=== PATIENT | female | born 1980 | race Caucasian/White ===

== ENCOUNTER 2016-09-07 09:51 | Emergency (ER) | payer SELFPAY ==
[~2016-09-07] VITALS: Ht 167.6 cm; Wt 90.7 kg
[~2016-09-07 09:51] MED LIST: AMOX1TAB61 PO; BENZ100C PO; PRED50TA PO; PROAIR RESPICL90 MCG IH; PROM5SYR2 PO
[2016-09-07 10:23] LABS: BILIRUBIN,URINE NEGATIVE (NEG); GLUCOSE,URINE NEGATIVE (NEG); NITRITE,URINE NEGATIVE (NEG); PROTEIN,URINE NEGATIVE (NEG-TRACE); UROBILINOGEN,URINE 0.2 mg/dL (0.2 mg/dL)
--- NOTE | 2016-09-07 10:27 | PHYS DOC ---
Past Medical History Past Medical History: No Pertinent History Past Surgical History: Tubal ligation Additional Past Surgical Histo: ovarian cyst removal Additional Information: 06/08 ppd Alcohol Use: None Drug Use: None Adult General Chief Complaint Chief Complaint: VAGINAL BLEEDING HPI HPI Patient is a 36 year old female presents to the emergency department stating that she started her menstrual cycle on Wednesday. Yesterday she started having what she describes as base ball size blood clots time 3. She states she has also has lower abdominal cramping, and back pain. She states she has had a tubal ligation in the past. She states she has not taken anything for the pain. She states she has gone thru 4 pads in a 24 hour period. Review of Systems Review of Systems Constitutional: Denies fever or chills [] Eyes: Denies change in visual acuity, redness, or eye pain [] HENT: Denies nasal congestion or sore throat [] Respiratory: Denies cough or shortness of breath [] Cardiovascular: No additional information not addressed in [facility] [] GI: lower pelvic abdominal cramping, denies nausea, vomiting, bloody stools or diarrhea [] : Denies dysuria or hematuria. C/o vaginal bleeding Musculoskeletal: Denies back pain or joint pain [] Integument: Denies rash or skin lesions [] Neurologic: Denies headache, focal weakness or sensory changes [] Current Medications Current Medications Current Medications Medications (Trade) Dose Ordered Sig/Tierney Start Time Stop Time Status Last Admin Dose Admin Ketorolac Tromethamine (Toradol) 30 mg 1X ONCE 09/07/16 11:00 09/07/16 11:01 DC 09/07/16 11:08 30 MG Allergies Allergies Allergies Coded Allergies Type Severity Reaction Last Updated Verified No Known Drug Allergies 06/13/14 No Physical Exam Physical Exam Constitutional: Well developed, well nourished, no acute distress, non-toxic appearance. [] HENT: Normocephalic, atraumatic, bilateral external ears normal, oropharynx moist, no oral exudates, nose normal. [] Eyes: PERRLA, EOMI, conjunctiva normal, no discharge. [] Neck: Normal range of motion, no tenderness, supple, no stridor. [] Cardiovascular:Heart rate regular rhythm, no murmur [] Lungs & Thorax: Bilateral breath sounds clear to auscultation [] Abdomen: Bowel sounds normal, soft, lower pelvic tenderness, no masses, no pulsatile masses. [] Skin: Warm, dry, no erythema, no rash. [] Back: No tenderness Extremities: No tenderness, no cyanosis, no clubbing, ROM intact, no edema. [] Neurologic: Alert and oriented X 3, normal motor function, normal sensory function, no focal deficits noted. [] Psychologic: Affect normal, judgement normal, mood normal. [] Vaginal exam: speculum exam with blood and clots noted in the vault. Manual exam : bilateral adnexal tenderness and CMT noted. Current Patient Data Vital Signs Vital Signs Date Time Temp Pulse Resp B/P Pulse Ox O2 Delivery O2 Flow Rate FiO2 09/07/16 09:56 98.1 92 20 135/83 98 Room Air 98.1 Lab Values Laboratory Tests Test 09/07/16 09:13 09/07/16 10:10 09/07/16 11:10 POC Urine HCG, Qualitative Hcg negative (Negative) Urine Collection Type Unknown Urine Color Yellow Urine Clarity Turbid Urine pH 6.0 Urine Specific [place] >=1.030 Urine Protein Negativemg/dL (NEG-TRACE) Urine Glucose (UA) Negativemg/dL (NEG) Urine Ketones (Stick) Negativemg/dL (NEG) Urine Blood Large (NEG) Urine Nitrite Negative (NEG) Urine Bilirubin Negative (NEG) Urine Urobilinogen Dipstick 0.2mg/dL (0.2 mg/dL) Urine Leukocyte Esterase Negative (NEG) Urine RBC 3-5/HPF (0-2) Urine WBC 0/HPF (0-4) Urine Squamous Epithelial Cells Few/LPF Urine Amorphous Sediment Present/HPF Urine Bacteria 0/HPF (0-FEW) Urine Mucus Slight/LPF White Blood Count 7.8x10^3/uL (4.0-11.0) Red Blood Count 4.36x10^6/uL (3.50-5.40) Hemoglobin 13.2g/dL (12.0-15.5) Hematocrit 40.6% (36.0-47.0) Mean Corpuscular Volume 93fL (79-100) Mean Corpuscular Hemoglobin 30pg (25-35) Mean Corpuscular Hemoglobin Concent 32g/dL (31-37) Red Cell Distribution Width 13.7% (11.5-14.5) Platelet Count 185x10^3/uL (140-400) Neutrophils (%) (Auto) 74% (31-73) H Lymphocytes (%) (Auto) 15% (24-48) L Monocytes (%) (Auto) 9% (0-9) Eosinophils (%) (Auto) 2% (0-3) Basophils (%) (Auto) 0% (0-3) Neutrophils # (Auto) 5.8x10^3uL (1.8-7.7) Lymphocytes # (Auto) 1.2x10^3/uL (1.0-4.8) Monocytes # (Auto) 0.7x10^3/uL (0.0-1.1) Eosinophils # (Auto) 0.1x10^3/uL (0.0-0.7) Basophils # (Auto) 0.0x10^3/uL (0.0-0.2) Laboratory Tests 09/07/16 11:10 Microbiology 09/07/16 Wet Prep - Final, Complete EKG EKG [] Radiology/Procedures Radiology/Procedures [[facility] [address] [place] [address] IMAGING REPORT Signed PATIENT: TIMOTHY PORTILLO ACCOUNT: [id number] : 1980 LOCATION: ER AGE: 36 SEX: F EXAM STATUS: REG ER ORD. PHYSICIAN: RAMIREZ SANDERS APRN REASON: vaginal bleeding with cramping PROCEDURE: PELVIS W/TV Transabdominal and endovaginal pelvic ultrasound History: Vaginal bleeding and cramping Comparison: None. Technique: Transabdominal imaging was performed to evaluate optimally the uterine fundus. Endovaginal imaging was performed to evaluate optimally the endometrial stripe and lower uterine segment. Findings: Transabdominal imaging: The uterus measures 9.6 cm in length. Uterus has a grossly unremarkable appearance. The endometrial stripe is not well seen. Neither ovary is visualized with transabdominal imaging. Endovaginal imaging: Nabothian cyst is seen. Uterus has an unremarkable appearance. The endometrial stripe measures 1 mm, within normal limits. Right ovary measures 1.4 x 1.2 x 1.6 cm and demonstrates a few small follicles. Left ovary measures 2.3 x 2.3 x 1.5 cm and demonstrates small follicles. No adnexal masses are seen. Both ovaries demonstrate normal vascular flow upon Doppler interrogation and are without evidence of torsion. Dilated right adnexal veins are seen. Impression: 1. Nabothian cyst. 2. Dilated right adnexal veins. Findings are nonspecific, but can be seen in the setting of pelvic congestion syndrome. Recommend clinical correlation. 3. Otherwise, unremarkable pelvic ultrasound. DICTATED and SIGNED BY: JUSTIN VINCENT MD DATE: 09/07/16 1116 CC: RAMIREZ SANDERS APRN; NO PCP; NON,STAFF ~ ] Course & Med Decision Making Course & Med Decision Making Pertinent Labs and Imaging studies reviewed. (See chart for details) Patient's test was negative. Urinalysis was negative as well. Ultrasound reveals a cyst on the cervix. Also reveals pelvic congestion. Patient with prep was positive for bacterial vaginosis. She'll be discharged home on Flagyl. She'll be recommended to use ibuprofen for pain and discomfort. Since symptoms to return back to emergency department been provided. Patient agrees with discharge instructions treatment regimens and follow-up recommendations. [] Dragon Disclaimer Dragon Disclaimer This electronic medical record was generated, in whole or in part, using a voice recognition dictation system. Departure Departure Impression: Primary Impression: Vaginal bleeding, abnormal Additional Impression: Bacterial vaginosis Disposition: 01 HOME, SELF-CARE Condition: STABLE Referrals: NO PCP (PCP) Patient Instructions: Abnormal Uterine Bleeding, Bacterial Vaginosis, Easy-to- Read Additional Instructions: Activity as tolerated Ibuprofen for pain and discomfort Medication as prescribed Followup with primary care provider in 5-7 days Return to emergency department as needed for signs and symptoms that become worse. Scripts Metronidazole (Flagyl)500 Mg Tablet1 Tab PO BID #14 TAB Prov:RAMIREZ SANDERS APRN 09/07/16 Doxycycline Hyclate 100 Mg Capsule1 Cap PO BID #28 CAP Prov:RAMIREZ SANDERS APRN 09/07/16 Problem Qualifiers RAMIREZ SANDERS APRN Sep 07, 2016 10:27
[2016-09-07 10:37] LABS: BACTERIA,URINE 0 /HPF (0-FEW); SQUAMOUS EPITHELIAL CELL,UR FEW /LPF; WBC,URINE 0 /HPF (0-4)
[2016-09-07] MEDS ORDERED: KETOROLAC TROMETHAMINE 30 MG/ML INJ. IV ONE (11:00)
--- NOTE | 2016-09-07 11:22 | RAD ---
Transabdominal and endovaginal pelvic ultrasound History: Vaginal bleeding and cramping Comparison: None. Technique: Transabdominal imaging was performed to evaluate optimally the uterine fundus. Endovaginal imaging was performed to evaluate optimally the endometrial stripe and lower uterine segment. Findings: Transabdominal imaging: The uterus measures 9.6 cm in length. Uterus has a grossly unremarkable appearance. The endometrial stripe is not well seen. Neither ovary is visualized with transabdominal imaging. Endovaginal imaging: Nabothian cyst is seen. Uterus has an unremarkable appearance. The endometrial stripe measures 1 mm, within normal limits. Right ovary measures 1.4 x 1.2 x 1.6 cm and demonstrates a few small follicles. Left ovary measures 2.3 x 2.3 x 1.5 cm and demonstrates small follicles. No adnexal masses are seen. Both ovaries demonstrate normal vascular flow upon Doppler interrogation and are without evidence of torsion. Dilated right adnexal veins are seen. Impression: 1. Nabothian cyst. 2. Dilated right adnexal veins. Findings are nonspecific, but can be seen in the setting of pelvic congestion syndrome. Recommend clinical correlation. 3. Otherwise, unremarkable pelvic ultrasound.
[2016-09-07 11:37] LABS: BASO % 0 % (0-3); EOS % 2 % (0-3); HEMATOCRIT 40.6 % (36.0-47.0); HEMOGLOBIN 13.2 g/dL (12.0-15.5); LYMPH # 1.2 x10^3/uL (1.0-4.8); LYMPH % 15 % (24-48); MEAN CORPUSCULAR HEMOGLOBIN 30 pg (25-35); MEAN CORPUSCULAR HGB CONC 32 g/dL (31-37); MEAN CORPUSCULAR VOLUME 93 fL (79-100); MONO % 9 % (0-9); NEUT % 74 % (31-73); PLATELET COUNT 185 x10^3/uL (140-400); RED BLOOD COUNT 4.36 x10^6/uL (3.50-5.40); RED CELL DISTRIBUTION WIDTH 13.7 % (11.5-14.5); WHITE BLOOD COUNT 7.8 x10^3/uL (4.0-11.0)
[2016-09-07] MEDS ORDERED: METR500T PO (11:51)
[2016-09-07] MEDS ORDERED: DOXY100C2 PO (11:51)
[2016-09-07] MEDS ORDERED: CEFTRIAXONE IM 250 MG VIAL. IM ONE (12:00)
[2016-09-07 12:10] VITALS: BP 124/78
--- NOTE | 2016-09-10 16:13 | VNOTE ---
CALL BACK NOTE CALL BACK Microbiology 09/07/16 Wet Prep - Final, Complete Received GC chlamydia PCR here today from the visit on September 07. Patient was positive for chlamydia. Review the chart shows that patient was prescribed doxycycline 100 mg by mouth twice a day for total of 14 days. I contacted patient at [phone]. I informed the patient of her test results today. She verbalizes understanding of this and her compliance to take medication. SAIRA CAVANAUGH Sep 10, 2016 16:13
== END 2016-09-07 12:20 | disposition home or self-care (01) ==
LOC: ER 09:51
DX: N76.0 Acute vaginitis (principal); N93.9 Abnormal uterine and vaginal bleeding, unspecified; F17.200 Nicotine dependence, unspecified, uncomplicated; B96.89 Other specified bacterial agents as the cause of diseases classified elsewhere; Z98.51 Tubal ligation status
CPT/HCPCS: 36415; 76830; 76856; 81001; 81025; 85027; 87491; 87591; 96372; 96374; 99285; J0696; J1885; Q0111

== ENCOUNTER 2016-10-11 09:50 | Emergency (ER) | payer SELFPAY ==
[~2016-10-11] VITALS: Ht 167.6 cm; Wt 81.6 kg
[~2016-10-11 09:50] MED LIST changes: +DOXY100C2 PO; +METR500T PO
[2016-10-11 10:01] VITALS: BP 109/71
[2016-10-11] MEDS ORDERED: PENICILLIN G BENZATHINE LA 1,200,000 UNIT/2 ML DISP.SYRIN. IM ONE (10:15)
[2016-10-11] MEDS ORDERED: PRED50TA PO (10:21)
[2016-10-11] MEDS ORDERED: LIDO20SO PO (10:21)
--- NOTE | 2016-10-11 10:21 | PHYS DOC ---
Past Medical History Past Medical History: No Pertinent History Past Surgical History: Tubal ligation Additional Past Surgical Histo: ovarian cyst removal Alcohol Use: None Drug Use: None Adult General Chief Complaint Chief Complaint: SORE THROAT HPI HPI Patient is a 36 year old female with history of smoking who presents today with a sore throat for 3 days. Patient is also complaining of subjective fevers. Patient denies any coughing or congestion. Review of Systems Review of Systems Constitutional: Subjective fever Eyes: Denies change in visual acuity, redness, or eye pain [] HENT: sore throat [] Respiratory: See history of present illness Cardiovascular: No additional information not addressed in HPI [] GI: Denies abdominal pain, nausea, vomiting, bloody stools or diarrhea [] : Denies dysuria or hematuria [] Musculoskeletal: Denies back pain or joint pain [] Integument: Denies rash or skin lesions [] Neurologic: Denies headache, focal weakness or sensory changes [] Endocrine: Denies polyuria or polydipsia [] Allergies Allergies Allergies Coded Allergies Type Severity Reaction Last Updated Verified No Known Drug Allergies 06/13/14 No Physical Exam Physical Exam Constitutional: Well developed, well nourished, no acute distress, non-toxic appearance. [] HENT: Normocephalic, atraumatic, bilateral external ears normal, oropharynx moist, no oral exudates, nose normal. [] +2 tonsils with mild erythema no exudate midline uvula. +2 anterior cervical adenopathy Eyes: PERRLA, EOMI, conjunctiva normal, no discharge. [] Neck: Normal range of motion, no tenderness, supple, no stridor. [] Cardiovascular:Heart rate regular rhythm, no murmur [] Lungs & Thorax: Bilateral breath sounds clear to auscultation [] Abdomen: Bowel sounds normal, soft, no tenderness, no masses, no pulsatile masses. [] Skin: Warm, dry, no erythema, no rash. [] Back: No tenderness, no CVA tenderness. [] Extremities: No tenderness, no cyanosis, no clubbing, ROM intact, no edema. [] Neurologic: Alert and oriented X 3, normal motor function, normal sensory function, no focal deficits noted. [] Psychologic: Affect normal, judgement normal, mood normal. [] Current Patient Data Vital Signs Vital Signs Date Time Temp Pulse Resp B/P (MAP) Pulse Ox O2 Delivery O2 Flow Rate FiO2 10/11/16 10:01 98.5 100 20 97 Room Air 98.5 EKG EKG [] Radiology/Procedures Radiology/Procedures [] Course & Med Decision Making Course & Med Decision Making Pertinent Labs and Imaging studies reviewed. (See chart for details) Patient is in the ED with sore throat and subjective fevers for 3 days. Positive rapid strep. Given penicillin injection in the ED. Discharged with prednisone and lidocaine viscous. Tylenol Motrin for pain or fever. Follow-up with primary care doctor in one week. Encouraged to consider smoking cessation Dragon Disclaimer Dragon Disclaimer This electronic medical record was generated, in whole or in part, using a voice recognition dictation system. Departure Departure Impression: Primary Impression: Acute streptococcal pharyngitis Additional Impressions: Smoking addiction Fever Disposition: HOME, SELF-CARE Condition: STABLE Referrals: NO PCP (PCP) Follow-up with your own doctor in 1-2 weeks Patient Instructions: Smoking Cessation, Strep Throat Additional Instructions: You tested positive for strep infection and was treated in the emergency room with penicillin injection. Take the prednisone for 5 days, use the lidocaine viscous as needed for sore throat. Take Tylenol or Motrin for pain or fever. Come back to the ED if symptoms worsen. Follow-up with your doctor in 1-2 weeks. Scripts Lidocaine Hcl (LIDOCAINE HCL VISCOUS) 20 Mg/1 Ml Solution 5 ML PO TID, #100 ML Prov: HEAVEN MACIAS APRN 10/11/16 Prednisone (PREDNISONE) 50 Mg Tablet 1 TAB PO DAILY, #5 TAB Prov: HEAVEN MACIAS APRN 10/11/16 Problem Qualifiers Additional Impressions: Fever Fever type: unspecified Qualified Codes: R50.9 - Fever, unspecified HEAVEN MACIAS APRN October 11, 2016 10:21
[2016-10-11 11:22] LABS: NEGATIVE OBC STREP NEG; POSITIVE OBC STREP POS
== END 2016-10-11 10:45 | disposition home or self-care (01) ==
LOC: ER 09:50
DX: J02.0 Streptococcal pharyngitis (principal); R50.9 Fever, unspecified; F17.200 Nicotine dependence, unspecified, uncomplicated
CPT/HCPCS: 87880; 96372; 99283; J0561

== ENCOUNTER 2016-10-17 23:13 | Emergency (ER) | payer OTHER ==
[~2016-10-17] VITALS: Ht 167.6 cm; Wt 81.6 kg
[~2016-10-17 23:13] MED LIST changes: +LIDO20SO PO
[2016-10-17 23:20] VITALS: BP 136/96
[2016-10-18] MEDS ORDERED: MORP15TA PO (00:28)
--- NOTE | 2016-10-18 00:29 | PHYS DOC ---
Past Medical History Past Medical History: No Pertinent History Past Surgical History: Tubal ligation Additional Past Surgical Histo: ovarian cyst removal Alcohol Use: None Drug Use: None Adult General Chief Complaint Chief Complaint: LACERATION/AVULSION HPI HPI 36-year-old female presenting the emergency department today after sustaining a laceration to her left knee. She reports falling onto a broken plate and cutting her left knee. This happened approximately an hour prior to arrival. It happened while at work. She has pain that is moderate nonradiating and intermittent and without alleviating factors. She denies any other injuries. Review of systems is negative for chest pain shortness of breath fevers or chills. All other review of systems is negative unless otherwise noted in history of present illness. Review of Systems Review of Systems SEE ABOVE. Current Medications Current Medications Current Medications Medications (Trade) Dose Ordered Sig/Tierney Start Time Stop Time Status Last Admin Dose Admin Diphtheria/ Tetanus/Acell Pertussis (Boostrix) 0.5 ml ONCE ONCE 10/18/16 00:30 10/18/16 00:31 DC 10/18/16 00:05 0.5 ML Morphine Sulfate (Morphine Ir) 15 mg 1X ONCE 10/18/16 00:30 10/18/16 00:31 DC 10/18/16 00:06 15 MG Allergies Allergies Allergies Coded Allergies Type Severity Reaction Last Updated Verified No Known Drug Allergies 06/13/14 No Physical Exam Physical Exam Constitutional: Well developed, well nourished, no acute distress, non-toxic appearance. HENT: Normocephalic, atraumatic, bilateral external ears normal, oropharynx moist, no oral exudates, nose normal. [] Eyes: PERRLA, EOMI, conjunctiva normal, no discharge. [] Neck: Normal range of motion, no tenderness, supple, no stridor. Cardiovascular:Heart rate regular rhythm, no murmur [] Lungs & Thorax: Bilateral breath sounds clear to auscultation Abdomen: Bowel sounds normal, soft, no tenderness, no masses, no pulsatile masses. [] Skin: Warm, dry, no erythema, no rash. Back: No tenderness, no CVA tenderness. [] Extremities: The patient's left knee has a superficial laceration to the anterior knee that is stellate informed. It does not penetrate deeper. It does not penetrate the joint. There is no gross foreign bodies present. Palpable pulse distally with normal neurovascular status. It is approximately 2 cm in length. Neurologic: Alert and oriented X 3, normal motor function, normal sensory function, no focal deficits noted. Psychologic: Affect normal, judgement normal, mood normal. [] Current Patient Data Vital Signs Vital Signs Date Time Temp Pulse Resp B/P (MAP) Pulse Ox O2 Delivery O2 Flow Rate FiO2 10/17/16 23:20 98.1 92 16 96 Room Air 98.1 EKG EKG [] Radiology/Procedures Radiology/Procedures [] Course & Med Decision Making Course & Med Decision Making Pertinent Labs and Imaging studies reviewed. (See chart for details) [] 36-year-old female presenting to the emergency department today with left knee laceration. X-rays were obtained which did not show any evidence of foreign body. Physical exam showed no evidence of joint penetration or foreign body. The wound was washed out with saline and subsequently sewn up. The patient was then discharged home in stable condition to follow up with their primary care physician over the next 10-14 days for suture repair. They were to return if their symptoms worsened or if they were concerned for any reason. Face -to-face discharge instructions and return precautions were given. Patient's questions were answered to their satisfaction. Patient is comfortable plan. Dragon Disclaimer Dragon Disclaimer This electronic medical record was generated, in whole or in part, using a voice recognition dictation system. Departure Departure Impression: Primary Impression: Laceration of left knee Disposition: 01 HOME, SELF-CARE Condition: STABLE Referrals: NO PCP (PCP) JUSTIN DIANA MD Patient Instructions: Laceration Care, Adult Additional Instructions: Thank you for allowing us to participate in your care today. Followup with your primary care physician in 3 days if your symptoms do not improve. If you do not have a primary care provider you can ask for a list of our primary care providers. Return to the emergency department you have any new or concerning findings. This should be evaluated by the primary care physician and any necessary consulting services for continued management within a few days after discharge. Return to emergency room if you have any new or concerning symptoms including but not limited to fever, chills, nausea, vomiting, intractable pain, any new rashes, chest pain, shortness of air, uncontrolled bleeding, difficulty breathing, and/or vision loss. You may have been prescribed medication that can change in your level of thinking and ability to operate machinery. These medications include hydrocodone and Ativan. Also, Benadryl has been known to do this as well. Be sure to check with your pharmacist and ask if the medications you've prescribed can affect your level of consciousness. I recommend not operating heavy machinery or driving while on medication such as these. Scripts Morphine Sulfate (MORPHINE SULFATE) 15 Mg Tablet 1 TAB PO PRN Q6-8HRS Y for SEVERE PAIN, #8 TAB Prov: SHABANA CURTIS MD 10/18/16 Laceration Repair Lac Repair Indication: knee lac Procedure: The patient was placed in the appropriate position and anesthesia around the left knee. 1% buffered lidocaine was used to anesthetize the area. The area was washed out with sterile normal saline. Laceration was closed in a simple interrupted fashion. The wound was then dressed with sterile dry nonadherent dressing. Total repaired wound length: 2cm. Other Items: none The patient tolerated the procedure well. Complications: none. SHABANA CURTIS MD October 18, 2016 00:29
[2016-10-18] MEDS ORDERED: DIPHTH,PERTUSS(ACELL),TET TOX 0.5 ML DISP.SYRIN. VAX IM ONE (00:30)
[2016-10-18] MEDS ORDERED: MORPHINE IR 15 MG TABLET PO ONE (00:30)
--- NOTE | 2016-10-18 07:59 | RAD ---
Examination: 3 views of the left knee History: History of fall Comparison: None available. Findings: The alignment of the knee joint grossly appears unremarkable. Examination is limited due to positioning. Grossly there is no obvious acute fracture or significant knee joint effusion identified. There is soft tissue irregularity identified anterior to the knee joint probably secondary to soft tissue injury. Impression: 1. Irregularity identified in the soft tissue anterior to the knee joint probably secondary to soft tissue injury. No obvious acute osseous findings.
== END 2016-10-18 01:25 | disposition home or self-care (01) ==
LOC: ER 23:13
DX: S81.012A Laceration without foreign body, left knee, initial encounter (principal); Z98.51 Tubal ligation status; Z23 Encounter for immunization; W45.8XXA Other foreign body or object entering through skin, initial encounter; Y93.89 Activity, other specified; Y92.89 Other specified places as the place of occurrence of the external cause; Y99.8 Other external cause status
CPT/HCPCS: 12001; 73562; 90471; 90715; 99284-25

== ENCOUNTER 2017-08-11 10:38 | Emergency (ER) | payer SELFPAY, OTHER ==
[2017-08-11] MEDS: IBUPROFEN 600 MG TABLET. PO (12:02)
== END 2017-08-11 12:00 | disposition home or self-care (01) ==
LOC: ER 10:38
DX: S86.912A Strain of unspecified muscle(s) and tendon(s) at lower leg level, left leg, initial encounter (principal); X50.9XXA Other and unspecified overexertion or strenuous movements or postures, initial encounter; Y93.72 Activity, wrestling; Y99.8 Other external cause status; Y92.89 Other specified places as the place of occurrence of the external cause
CPT/HCPCS: 73562; 99284

== ENCOUNTER 2017-11-11 11:03 | Emergency (ER) | payer SELFPAY | END 2017-11-11 12:40 | disposition home or self-care (01) | LOC: ER 12:40 | DX: L02.211 Cutaneous abscess of abdominal wall (principal); L03.311 Cellulitis of abdominal wall; Z98.51 Tubal ligation status | CPT/HCPCS: 99283 ==

== ENCOUNTER 2017-12-03 11:46 | Emergency (ER) | payer SELFPAY ==
[2017-12-03 12:01] LABS: URINE HCG POC HCG NEGATIVE (Negative)
[2017-12-03 12:08] LABS: BILIRUBIN,URINE NEGATIVE (NEG); CLARITY,URINE CLEAR; COLOR,URINE YELLOW; GLUCOSE,URINE NEGATIVE (NEG); NITRITE,URINE NEGATIVE (NEG); PH,URINE 5.5; PROTEIN,URINE NEGATIVE (NEG-TRACE); UROBILINOGEN,URINE 0.2 mg/dL (0.2 mg/dL)
[2017-12-03] MEDS: HYDROcodone/APAP 5/325MG 1 TAB TABLET PO (12:17)
[2017-12-03 12:20] LABS: BACTERIA,URINE FEW /HPF (0-FEW); RBC,URINE 0 /HPF (0-2); SQUAMOUS EPITHELIAL CELL,UR MOD /LPF
== END 2017-12-03 14:20 | disposition home or self-care (01) ==
LOC: ER 11:46
DX: N76.0 Acute vaginitis (principal); B96.89 Other specified bacterial agents as the cause of diseases classified elsewhere; F17.200 Nicotine dependence, unspecified, uncomplicated; Z98.51 Tubal ligation status
CPT/HCPCS: 81001; 81025; 99284; Q0111